=== PATIENT | female | born 1955 | race Caucasian/White ===

== ENCOUNTER 2022-05-04 11:18 | Emergency (ER) | payer OTHER ==
[2022-05-04] MEDS ORDERED: Ondansetron 4 MG/2 ML SDV IVPUSH ONE (12:24)
[2022-05-04] MEDS ORDERED: fentaNYL 100 MCG/2 ML SDV IVPUSH ONE ×2 (12:24→13:13)
[2022-05-04 12:45] LABS: ANION GAP 9.7 meq/L (7-15); CHLORIDE,CL 101 mmol/L (98-107); ESTIMATED GFR 46 mL/min (>=60); SODIUM,NA 139 mmol/L (136-145)
[2022-05-04] MEDS ORDERED: Midazolam 1 MG/ML 2 ML SDV IVPUSH ONE (13:13)
[2022-05-04] MEDS: Sodium Chloride 0.9% 10 ML Syringe FLUSH PRN ×2 (13:21→15:56)
[2022-05-04] MEDS ORDERED: fentaNYL 50 MCG/ML SDV IVPUSH ONE ×2 (13:44→15:52)
[2022-05-04] MEDS ORDERED: Sodium Chloride 0.9% 500 ML IV SCH (15:15)
== END 2022-05-04 16:20 ==
LOC: LL.ED 11:18
DX: S43.005A Unspecified dislocation of left shoulder joint, initial encounter (principal); E78.00 Pure hypercholesterolemia, unspecified; I10 Essential (primary) hypertension; Z79.4 Long term (current) use of insulin; Z79.899 Other long term (current) drug therapy; Z79.84 Long term (current) use of oral hypoglycemic drugs; W19.XXXA Unspecified fall, initial encounter
CPT/HCPCS: 23650; 36415; 73020; 73070; 73100; 80053; 85025; 96361; 96374; 99285; J2250; J2405; J3010; J3490; J7040